=== PATIENT | female | born 1975 | race Caucasian/White ===

== ENCOUNTER → 2019-07-21 09:02 | Outpatient (CLI) | payer MEDICAID, SELFPAY ==
[2019-07-21 12:21] LABS: Absolute Lymphocyte Count 2.53 X10^3/uL (0.83-4.51); Absolute Neutrophil Count 5.9 X10^3/uL (2.0-7.7); Basophil# 0.04 X10^3/uL; Basophil% 0.4 % (0-1); Eosinophil# 0.19 X10^3/uL; Eosinophils% 2.1 % (0-5); Hematocrit 38.7 % (37-47); Hemoglobin 12.6 g/dL (12.0-15.0); Lymphocyte # 2.53 X10^3/ul (4.0); Lymphocyte % 27.9 % (19-41); Mean Corp Hgb Conc 32.6 g/dL (32-36); Mean Corpuscular Hgb 30.6 pg (27.0-32.0); Mean Corpuscular Volume 93.9 fL (81-99); Mean Platelet Vol. 10.3 fl (6.2-12.0); Monocyte# 0.42 X10^3/uL; Monocyte% 4.6 % (0-10); NRBC Flagged by Analyzer 0 % (0-5); Neutrophil # 5.85 X10^3/uL (2.7-7.7); Neutrophil % 64.6 % (47-70); Platelet Count 247 K/mm3 (150-450); RBC Distribution Width CV 13.4 % (11.6-14.6); RBC Distribution Width SD 45.8 fl (35.1-43.9); Red Blood Count 4.12 M/mm3 (4.2-5.4); White Blood Count 9.1 K/mm3 (4.4-11.0)
[2019-07-21 12:29] LABS: Erythrocyte Sedimentation Rate 35 mm/hr (0-20)
[2019-07-21 12:43] LABS: ALB/GLOB Ratio 0.9 RATIO (0.9-2.4); AST(SGOT) 58 U/L (15-37); Alanine Aminotransfer ALT/SGPT 95 U/L (13-56); Albumin, Serum 3.4 g/dL (3.2-5.0); Alkaline Phosphatase 52 U/L (45-117); Anion Gap 5 (5-15); BUN 15 mg/dL (7-18); BUN/Creat Ratio 21.4 RATIO (10-20); CRP < 2.90 mg/L (0.0-3.0); Calcium,Total 8.6 mg/dL (8.5-10.1); Chloride 106 mmol/L (98-107); EST Glomerular Filtration Rate 97 mL/min (>60); Est Glom Filt Rate - Afr Amer 117 mL/min (>60); Globulin 3.6 g/dL (2.2-4.2); Glucose 94 mg/dL (74-106); Lipase 139 U/L (73-393); Potassium 3.9 mmol/L (3.5-5.1); Sodium Level 137 mmol/L (136-145)
== END ==
PROVIDERS: PCP Family Medicine; Visit Provider Family Medicine
DX: R10.9 Unspecified abdominal pain (principal)
CPT/HCPCS: 36415; 80053; 83690; 85025; 85652; 86140

== ENCOUNTER 2020-02-02 07:22 | Day surgery (SDC) | payer MEDICAID, SELFPAY ==
[2020-01-12 14:14] VITALS: BMI 28.3
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
[2020-02-02 07:37] VITALS: BP 119/40; PULSE 91; RESP 16; TEMP 36.4; O2SAT 100; BMI 29.4
[2020-02-02] MEDS: Lactated Ringers 1,000 ML 100 ML IV (07:52)
--- NOTE | 2020-02-02 08:30 | COLBX_PTH ---
PATIENT: TORI LEON LOC: EN U#:[id number] AGE/SX: 45/F ROOM: RE02/02/[address]: Dr. Omar Lam MD : 1975 BED: DIS: 02/02/2020 SPEC #: [id number] RECD: 02/02/20 15:06 STATUS: JOSE MARTIN ASIF #: [id number] MARITA: 02/02/20 08:[address]: Omar Lam DEPT: SURGICAL PATHOLOGY RECD BY: Xavi Espinal ENTERED: 02/03/20 09:09 SP TYPE: COLON BX OTHR DR: Dr. Caden Hua, DO Tissues: Rectum, NOS Procedures: Surgery Specimen Level IV HEADER OPERATION: Colonoscopy (MAC) PRE-OP DIAGNOSIS: Rectal hemorrhage, anal pruritus TISSUE SUBMITTED: Rectal polyps (2) MICROSCOPIC DIAGNOSIS Rectal polyps x2, biopsy: Tubular adenoma. Hyperplastic polyp. SJ:marii 02/04/20 MICROSCOPIC DESCRIPTION Slides are reviewed. GROSS DESCRIPTION Received in fixative is one container labeled with the patient's name and designated rectal polyps. The specimen consists of two pieces of welch-pink soft tissue that in aggregate measure 0.7 x 0.4 x 0.3 cm and 0.3 and 0.5 cm in greatest dimension. The specimen is totally submitted in one cassette. / SJ:marii 02/03/20 TC:1 CPT: 65259
[2020-02-02 08:45] VITALS: BP 100/51; BP 119/40; PULSE 77; RESP 18; TEMP 37; O2SAT 99
--- NOTE | 2020-02-02 08:46 | OP.COLON_ITS ---
Patient Name: Katheryn Dia Procedure Date: 02/02/2020 8:14 AM Date of : 1975 Age: 45 Procedure: Colonoscopy Indications: Rectal bleeding, anal pruritis Providers: Omar Lam MD Referring MD: Caden Hua Medicines: See the Anesthesia note for documentation of the administered medications Patient Profile: This is a 45 year old female. Refer to note in patient chart for documentation of history and physical. Last Colonoscopy: none. The patient's first colonoscopy is today. Complications: No immediate complications. Procedure: Pre-Anesthesia Assessment: - Prior to the procedure, a History and Physical was performed, and patient medications and allergies were reviewed. The patient's tolerance of previous anesthesia was also reviewed. The risks and benefits of the procedure and the sedation options and risks were discussed with the patient. All questions were answered, and informed consent was obtained. Prior Anticoagulants: The patient has taken no previous anticoagulant or antiplatelet agents. ASA Grade Assessment: II - A patient with mild systemic disease. After reviewing the risks and benefits, the patient was deemed in satisfactory condition to undergo the procedure. After I obtained informed consent, the scope was passed under direct vision. Throughout the procedure, the patient's blood pressure, pulse, and oxygen saturations were monitored continuously. The adult colonoscope was introduced through the anus and advanced to 3 cm into the ileum. The colonoscopy was performed without difficulty. The patient tolerated the procedure well. The quality of the bowel preparation was good. Scope In: 8:26:50 AM Scope Withdrawal Time 0 hours 8 minutes 39 seconds Scope Out: 8:39:43 AM Total Procedure Duration Time 0 hours 12 minutes 53 seconds Findings: The terminal ileum appeared normal. No biopsies or other specimens were collected for this exam. Two sessile polyps were found in the rectum. The polyps were 4 to 5 mm in size. These polyps were removed with a hot snare. Resection and retrieval were complete. Non-bleeding internal hemorrhoids were found during retroflexion. The hemorrhoids were mild and small. No biopsies or other specimens were collected for this exam. The exam was otherwise without abnormality. Impression: - The examined portion of the ileum was normal. No specimens collected. - Two 4 to 5 mm polyps in the rectum, removed with a hot snare. Resected and retrieved. - Non-bleeding internal hemorrhoids. No specimens collected. - The examination was otherwise normal. Recommendation: - Discharge patient to home. - Resume previous diet. - Continue present medications. - Await pathology results. - Repeat colonoscopy in 5 years for surveillance. - Return to my office in 1 week. Procedure Code(s): --- Professional --- 39886, Colonoscopy, flexible; with removal of tumor(s), polyp(s), or other lesion(s) by snare technique Diagnosis Code(s): --- Professional --- K64.8, Other hemorrhoids K62.1, Rectal polyp K62.5, Hemorrhage of anus and rectum CPT copyright 2017 [employer]. All rights reserved. The codes documented in this report are preliminary and upon financial services consultant review may be revised to meet current compliance requirements. MD Omar Harman MD 02/02/2020 8:46:00 AM This report has been signed electronically. Number of Addenda: 0 Note Initiated On: 02/02/2020 8:14 AM
--- NOTE | 2020-02-02 08:46 | OP.CCLET_ITS ---
02/02/2020 Caden Hua [address] [place] [address] Re : Colonoscopy procedure for Katheryn Dia Dear Dr. Hua This procedure was performed on Sunday, February 02, 2020. My impressions and recommendations are as follows: Impressions : - The examined portion of the ileum was normal. No specimens collected. - Two 4 to 5 mm polyps in the rectum, removed with a hot snare. Resected and retrieved. - Non-bleeding internal hemorrhoids. No specimens collected. - The examination was otherwise normal. Recommendations : - Discharge patient to home. - Resume previous diet. - Continue present medications. - Await pathology results. - Repeat colonoscopy in 5 years for surveillance. - Return to my office in 1 week. My findings are described in the full procedure note, which is enclosed. If I can be of further assistance, please feel free to contact me at Doctor phone number(s): , Fax: [phone], Work: . Sincerely, MD Omar Harman MD 02/02/2020 8:46:00 AM This report has been signed electronically.
[2020-02-02 08:50] VITALS: BP 106/36; BP 119/40; PULSE 81; RESP 18; O2SAT 100
[2020-02-02 08:55] VITALS: BP 108/60; BP 119/40; PULSE 79; RESP 18; O2SAT 100
[2020-02-02 09:00] VITALS: BP 100/76; BP 119/40; PULSE 73; RESP 18; TEMP 36.2; O2SAT 100
[2020-02-02 09:19] VITALS: BP 119/40
== END 2020-02-02 09:25 | disposition home or self-care (01) ==
LOC: EN 07:22 → AC 07:22
PROVIDERS: Anesthesiology; PCP Family Medicine; Referring Provider Family Medicine; Visit Provider Surgery
PROC: 0DJD8ZZ Inspection of Lower Intestinal Tract, Via Natural or Artificial Opening Endoscopic (ICD-10-PCS; CPT 45378; principal; 2020-02-02 08:25)
DX: D12.8 Benign neoplasm of rectum (principal); K62.5 Hemorrhage of anus and rectum; L29.0 Pruritus ani; K64.8 Other hemorrhoids; F17.210 Nicotine dependence, cigarettes, uncomplicated
CPT/HCPCS: 45385; 87635; 88305; C9803; J7120; J2405; U0003

== ENCOUNTER → 2020-02-11 07:46 | Outpatient (CLI) | payer MEDICAID, SELFPAY ==
[2020-02-02 07:37] VITALS: BMI 29.4
--- NOTE | 2020-02-11 07:47 | BI_ITS ---
MAMMOGRAPHY - BILATERAL SCREENING REASON FOR EXAM: Female, 45 years old. Routine annual screening examination. PERTINENT HISTORY: Non-contributory. TECHNIQUE: Digital bilateral breast michelle (3D mammographic acquisition) in the CC and MLO projections. 2-D mediolateral oblique (MLO) and craniocaudad (CC) views of both breasts were obtained. CAD: Full Field Digital Mammography with Computer Added Detection was performed. COMPARISON: None. Baseline examination. FINDINGS: Breast Composition: The breasts are heterogeneously dense, which may obscure small masses. There are no dominant masses or suspicious calcifications. Small benign-appearing bilateral axillary lymph nodes. No other significant abnormalities are identified. BI/SCREEN MAMM (CAD) W/MICHELLE BILAT IMPRESSION: Negative screening mammogram. Yearly followup mammogram recommended. (A) ASSESSMENT CATEGORY: BIRADS Category 2: Benign. A letter regarding these results will be sent to the patient by the facility within 30 days. Approximately 10% of breast cancers are not detected by mammography. A normal mammogram should not delay biopsy of a clinically suspicious abnormality. [id number] Electronically Signed: Jenaro Pacheco, at 9:31 EDT , Service support ,
== END ==
PROVIDERS: PCP Family Medicine; Referring Provider Obstetrics & Gynecology; Visit Provider Obstetrics & Gynecology
DX: Z12.31 Encounter for screening mammogram for malignant neoplasm of breast (principal)
CPT/HCPCS: 77063; 77067

== ENCOUNTER 2020-12-07 01:50 | Emergency (ER) | payer MEDICAID, SELFPAY ==
[2020-12-07 01:52] VITALS: BP 107/79; PULSE 95; RESP 16; TEMP 36.4; O2SAT 100; BMI 26.9
[2020-12-07 01:54] VITALS: BP 107/79; PULSE 95; RESP 16; TEMP 36.4; O2SAT 100
[2020-12-07 02:15] LABS: Absolute Lymphocyte Count 2.61 X10^3/uL (0.83-4.51); Absolute Neutrophil Count 6.7 X10^3/uL (2.0-7.7); Basophil# 0.04 X10^3/uL; Basophil% 0.4 % (0-1); Eosinophils% 2.9 % (0-5); Hematocrit 43.3 % (37-47); Lymphocyte # 2.61 X10^3/ul (0.83-4.51); Lymphocyte % 25.3 % (19-41); Mean Corp Hgb Conc 32.3 g/dL (32-36); Mean Platelet Vol. 9.4 fl (6.2-12.0); Monocyte% 5.8 % (0-10); NRBC Flagged by Analyzer 0 % (0-5); Neutrophil # 6.72 X10^3/uL (2.7-7.7); Neutrophil % 65.3 % (47-70); Platelet Count 254 K/mm3 (150-450); RBC Distribution Width CV 13.6 % (11.6-14.6); RBC Distribution Width SD 48.6 fl (35.1-43.9); Red Blood Count 4.51 M/mm3 (4.2-5.4); White Blood Count 10.3 K/mm3 (4.4-11.0)
--- NOTE | 2020-12-07 02:18 | EX.ED.DYSGE1 ---
HPI History of Present Illness Chief Complaint: Abd Pain Informant: patient Narrative Narrative: Patient is a 45-year-old female who presents to the emergency department for diffuse abdominal pain. She states that this has been ongoing for the past week. She has had issues with this previously. She has had a colonoscopy before which only showed a few polyps which were removed. She says that her abdominal pain got up to an 8 out of 10. She describes as a crampy sensation. She does take Pepto-Bismol for this which usually does help but did not this time. She has been having some intermittent loose stools. No blood or black tarry stools. No urinary symptoms. She denies any nausea or vomiting. No known sick contacts. No recent travel or antibiotic use. She has had a history of hysterectomy. [facility] Medical History (Updated 12/07/20 @ 04:[address] Tye Esparza DO) Anxiety Chest pain Home Medications dicyclomine 20 mg PO BID PRN #20 tab 12/07/20 [Rx Last Taken Unknown] Allergy/AdvReac Type Severity Reaction Status Date / Time nickel Allergy Rash Verified 02/15/20 07:51 propoxyphene napsylate AdvReac Nausea Verified 02/15/20 07:51 [From Darvocet-N 100] Family History Brother Asthma Father Cancer bone Daughter Cancer NHL Surgical History (Updated 02/15/20 @ 07:52 by Uyen Kinsey) History of colonoscopy (~01/2020) Recent surgical procedure on lower extremity S/P hysterectomy Social History Smoking Status: Current every day smoker tobacco type: cigarettes alcohol intake: current alcohol intake frequency: a few times a month ROS ROS ED Constitutional Constitutional ED: Denies chills or fever(s) Eyes Eyes: Denies change in vision ENT ENT ED: Denies epistaxis or rhinorrhea Cardiovascular Cardiovascular: Denies chest pain or palpitations Respiratory/Chest Respiratory/Chest: Denies cough or dyspnea Gastrointestinal Gastrointestinal: Reports abdominal pain and diarrhea; Denies constipation, melena, nausea or vomiting Genitourinary Genitourinary ED: Denies dysuria, hematuria or urinary frequency Musculoskeletal Musculoskeletal: Denies back pain or neck pain Integumentary Denies rash Neurologic Neurologic: Denies dizziness, headache(s) or weakness EXAM Physical Exam Const Vital Signs: 12/07/20 01:52 12/07/20 01:54 Temperature 97.6 F L 97.6 F L Temperature Source Temporal Temporal Pulse Rate 95 95 Respiratory Rate 16 16 Blood Pressure 107/79 107/79 Blood Pressure Mean 88 88 Pulse Ox 100 100 Oxygen Delivery Method Room Air Room Air Positive well nourished and well developed General Appearance ED: well developed and NAD HEENT Reports normocephalic, head/scalp atraumatic and moist mucous membranes Eyes PERRL and EOMs intact bilaterally Neck supple Chest Wall inspection of chest normal Resp normal respiratory effort and clear to auscultation bilaterally Auscultation: Negative for rales, rhonchi or wheezes Cardio regular rate, regular rhythm and no murmurs GI normal to inspection, nondistended, normoactive bowel sounds GI Narrative: Diffuse tenderness. No one spot seems to hurt worse than another. Negative Green sign. Palpation: soft; Negative for guarding or rebound tenderness present Back/Spine no CVA tenderness Extremity normal to inspection General Extremety ED: Negative for edema or tenderness General Extremity: Negative for edema Neuro no sensory deficits noted Sensorium / Orientation: alert Motor Exam: strength 5/5 throughout Psych mental status grossly normal Skin no rashes or lesions noted MDM MDM MDM Narrative Medical decision making narrative: Patient presents the ED for acute on chronic exacerbation of abdominal pain. This episode has been going on for the past week. Upon arrival to the ED vital signs within normal limits. She is in no acute distress. She does have diffuse tenderness without any peritoneal signs. Will check basic lab work at this time. We will give a dose of Bentyl for symptomatic treatment. Patient's lab work did not reveal any significant acute abnormality. She does not have a high white blood cell count. She is not anemic. No acute electrolyte disturbance. Liver enzymes within normal limits. Lipase is normal. Urine does not show any evidence of infection. On repeat examination patient is feeling better after the Bentyl. She has that this has helped a lot with her cramping. This time I do not feel any imaging is necessary. She does have a benign exam. She is feeling better at this time and has a relatively negative lab work-up. She does feel comfortable being discharged home at this time. I did write a prescription for Bentyl. She is to follow-up with her PCP. Return precautions are reviewed including any worsening pain, developing systemic symptoms or bloody bowel movements. She understands and is agreeable with this plan. All questions were answered. Lab Data Labs: Laboratory Results - last 24 hr 12/07/20 12/07/20 12/07/20 01:55 01:55 03:45 WBC 10.3 RBC 4.51 Hgb 14.0 Hct 43.3 MCV 96.0 MCH 31.0 MCHC 32.3 RDW Std Deviation 48.6 H RDW Coeff of Angelica 13.6 Plt Count 254 MPV 9.4 Immature Gran % (Auto) 0.300 Neut % (Auto) 65.3 Lymph % (Auto) 25.3 Kidder % (Auto) 5.8 Eos % (Auto) 2.9 Baso % (Auto) 0.4 Absolute Neuts (auto) 6.7 Absolute Lymphs (auto) 2.61 Nucleated RBC % 0 Sodium 138 Potassium 3.4 L Chloride 106 Carbon Dioxide 26.0 Anion Gap 6 BUN 14 Creatinine 0.78 Estim Creat Clear Calc 82.82 Est GFR (MDRD) Af Amer 103 Est GFR (MDRD) Non-Af 85 BUN/Creatinine Ratio 17.9 Glucose 121 H Calcium 8.6 Total Bilirubin 0.60 AST 13 L ALT 25 Alkaline Phosphatase 63 Total Protein 7.3 Albumin 3.4 Globulin 3.9 Albumin/Globulin Ratio 0.9 Lipase 133 Urine Color Yellow Urine Clarity Clear Urine pH 5.0 Ur Specific [place] 1.025 Urine Protein 30 H Urine Glucose (UA) Normal Urine Ketones 5 H Urine Occult Blood Negative Urine Nitrite Negative Urine Bilirubin Negative Urine Urobilinogen Normal Ur Leukocyte Esterase 25 H Urine RBC 0 SEEN Urine WBC 0-5 SEEN Ur Squamous Epith Cells 5-10 SEEN Calcium Oxalate Crystal RARE Urine Bacteria 0 SEEN Urine Mucus RARE Discharge Plan Triage Chief Complaint: Abd Pain ED Provider: Tye Esparaz Dx/Rx/DC Orders Clinical Impression: Abdominal pain Instructions: Abdominal Pain Prescriptions: New dicyclomine 20 mg tablet 20 mg PO BID PRN (Reason: abdominal pain) Qty: 20 RF: 0 Primary Care Provider: Caden Hua Referrals: Caden Hua DO [Primary Care Provider] - 3-5 Days Disposition Disposition: Home, Self Care Discharge Date/Time: 12/07/20 04:43
[2020-12-07] MEDS: Dicyclomine 20 MG/2 ML Vial IM (02:23)
[2020-12-07 02:29] LABS: ALB/GLOB Ratio 0.9 RATIO (0.9-2.4); AST(SGOT) 13 U/L (15-37); Alanine Aminotransfer ALT/SGPT 25 U/L (13-56); Albumin, Serum 3.4 g/dL (3.2-5.0); Alkaline Phosphatase 63 U/L (45-117); Anion Gap 6 (5-15); BUN 14 mg/dL (7-18); BUN/Creat Ratio 17.9 RATIO (10-20); Calcium,Total 8.6 mg/dL (8.5-10.1); Chloride 106 mmol/L (98-107); Creatinine, Serum 0.78 mg/dL (0.55-1.02); EST Glomerular Filtration Rate 85 mL/min (>60); Est Glom Filt Rate - Afr Amer 103 mL/min (>60); Estimated Creatinine Clearance 82.82 ml/min; Globulin 3.9 g/dL (2.2-4.2); Glucose 121 mg/dL (74-106); Lipase 133 U/L (73-393); Potassium 3.4 mmol/L (3.5-5.1); Protein, Total 7.3 g/dL (6.4-8.2); Sodium Level 138 mmol/L (136-145)
[2020-12-07 04:01] LABS: Bacteria 0 SEEN /hpf (None Seen); Red Blood Cells-Urine 0 SEEN /hpf (0-5)
[2020-12-07 04:09] LABS: Color, Urine Yellow (Yellow); Glucose, Dipstick Normal (Normal); Ketone-Dipstick 5 mg/dl (Negative); Leukocyte Esterase-Dipstick 25 /ul (Negative); Nitrite-Dipstick Negative (Negative); Occult Blood-Urine Negative /ul (Negative); Protein-Dipstick 30 mg/dl (Negative); Specific Gravity, Urine 1.025 (1.002-1.030); Urine Bilirubin Dipstick Negative (Negative); Urine Clarity Clear (Clear); Urine Urobilinogen Normal (Normal)
[2020-12-07 04:13] LABS: Squamous Epithelial Cells - UA 5-10 SEEN /hpf (5-10); White Blood Cells 0-5 SEEN /hpf (0-5)
[2020-12-07 04:14] LABS: Calcium Oxalate Crystals Ur RARE /hpf (<or=2+); Mucous, Urine RARE /hpf (<or=2+)
== END 2020-12-07 04:43 | disposition home or self-care (01) ==
PROVIDERS: Emergency Provider Emergency Medicine; PCP Family Medicine
DX: R10.9 Unspecified abdominal pain (principal); F17.210 Nicotine dependence, cigarettes, uncomplicated; F41.9 Anxiety disorder, unspecified; Z90.710 Acquired absence of both cervix and uterus
CPT/HCPCS: 80053; 81001; 83690; 85025; 96372; 99283; A4216

== ENCOUNTER → 2021-02-08 16:52 | Outpatient (CLI) | payer MEDICAID, SELFPAY | PROVIDERS: PCP Family Medicine; Visit Provider Family Medicine | DX: U07.1 COVID-19 (principal); Z20.828 Contact with and (suspected) exposure to other viral communicable diseases | CPT/HCPCS: 87635; U0005; U0003 ==

== ENCOUNTER → 2021-10-19 | Outpatient (CLI) | payer MEDICAID, SELFPAY ==
--- NOTE | 2021-10-19 11:59 | BI_ITS ---
MAMMOGRAPHY - BILATERAL SCREENING REASON FOR EXAM: Female, 46 years old. Routine annual screening examination. PERTINENT HISTORY: Non-contributory. TECHNIQUE: Digital bilateral breast michelle (3D mammographic acquisition) in the CC and MLO projections. 2-D mediolateral oblique (MLO) and craniocaudad (CC) views of both breasts were obtained. CAD: Full Field Digital Mammography with Computer Added Detection was performed. COMPARISON: Mammogram from 02/11/2020 FINDINGS: Breast Composition: The breasts are heterogeneously dense, which may obscure small masses. There are no dominant masses or suspicious calcifications. No other significant abnormalities are identified. There has been no significant change since the prior study. BI/SCRN MAMM (CAD)W/MICHELLE BILAT IMPRESSION: Stable bilateral screening mammogram. Yearly follow-up mammogram recommended. (A) ASSESSMENT CATEGORY: BIRADS Category 1: Negative. A letter regarding these results will be sent to the patient by the facility within 30 days. Approximately 10% of breast cancers are not detected by mammography. A normal mammogram should not delay biopsy of a clinically suspicious abnormality. [id number] Electronically Signed: Fortunato Cui, at 17:06 EDT ,
== END | disposition home or self-care (01) ==
LOC: OPBI 11:58
PROVIDERS: PCP Family Medicine; Referring Provider Obstetrics & Gynecology; Visit Provider Obstetrics & Gynecology
DX: Z12.31 Encounter for screening mammogram for malignant neoplasm of breast (principal)
CPT/HCPCS: 77063; 77067